=== PATIENT | female | born 1940 | race Caucasian/White ===

== ENCOUNTER 2017-02-24 11:10 | Emergency (ER) | payer OTHER ==
[~2017-02-24] VITALS: Ht 149.9 cm; Wt 79.4 kg
[~2017-02-24 11:10] MED LIST: AMLODIPINE BESY10 M1 PO; ASPIRIN EC325 M2 PO; BUDESONIDE0.25 MG/2 INH/SOL; CALCIUM 600 +1 EAC7 PO; CO Q-10100 MG PO; COLACE100 M1 PO; COQ10 IN OIL 101 SGL PO; DIAZEPAM5 MG PO; DICLOFENAC SODI75 M2 PO; DILAUDID2 M1 PO; DIOVAN80 MG PO; DOXYCYCLINE MO100 MG PO; FISH OIL 1,2001 EAC2 PO; FLOVENT0.11 MG/Ac INH; HYDRODIURIL 2525 MG PO; LIPITOR 40MG40 MG PO; LIPITOR40 M1 PO; MAGNESIUM/ZINC PO; MIRALAX17 G1 PO; NEXIUM20 MG PO; NORVASC 5MG TAB5 MG PO; ONE DAILY MULT1 EAC2 PO; PREDNISONE 20MG20 MG PO; PRILOSEC40 MG PO; PRISTIQ ER50 MG PO; SPIRIVA1 PUF INH; TRAMADOL50 MG PO; VALIUM 10 MG. T10 MG PO; VALIUM10 M1 PO; VENTOLIN1 PUF INH; VIBRAMYCIN 100100 MG PO; [UNRECOGNIZED DRUG - CODE] PO
--- NOTE | 2017-02-24 11:42 | ED GENERAL ADULT ---
History of Present Illness General Chief Complaint: General Adult Stated Complaint: BIBA FROM HOME SOB/WEAKNESS Source: patient Exam Limitations: no limitations Vital Signs & Intake/Output Vital Signs & Intake/Output Vital Signs Date Time Temp Pulse Resp B/P B/P Pulse O2 O2 Flow FiO2 Mean Ox Delivery Rate 02/24 1725 98.5 82 14 162/73 Room Air 02/24 1530 97.0 67 16 163/70 97 Room Air 02/24 1353 99.0 76 19 188/77 02/24 1319 99.0 76 19 188/77 95 Room Air 02/24 1130 98 02/24 1121 99.3 74 20 186/74 98 Room Air Allergies Coded Allergies: NO KNOWN ALLERGIES (03/23/16) Reconcile Medications Alendronate Sodium 70 MG TABLET 1 TAB PO QW BONE (Reported) in the morning, at least 30 minutes before the first food, beverage, or medication of the day Amlodipine Besylate 10 MG TABLET 1 TAB PO DAILY BP (Reported) Atorvastatin Calcium (Lipitor) 40 MG TABLET 1 TAB PO DAILY CHOLESTEROL ( Reported) Calcium Carbonate/Vitamin D3 (Calcium 600 + Vit D 800 Tab) 600 MG-800 TABLET 1 TAB PO DAILY SUPPLEMENT (Reported) Desvenlafaxine Succinate (Pristiq ER) 50 MG TAB.ER.24H 1 TAB PO DAILY DEPRESSION (Reported) Diazepam (Valium) 10 MG TABLET 1 TAB PO BIDP PRN ANXIETY (Reported) Diclofenac Sodium 75 MG TABLET.DR 1 TAB PO BID PAIN CONTROL (Reported) Docusate Sodium (Colace) 100 MG CAPSULE 1 CAP PO BID constipation hold if diarrhea Esomeprazole Magnesium (Nexium) 20 MG CAPSULE.DR 1 CAP PO DAILY GI (Reported) Fluticasone/Vilanterol (Breo Ellipta 100-25 Mcg INH) 100 MCG-25 MCG/DOSE BLST.W.DEV SHORTNESS OF BREATH (Reported) Hydrochlorothiazide 25 MG TABLET 1 TAB PO DAILY WATER RETENTION (Reported) Multivitamin (One Daily Multivitamin) 1 EACH TABLET 1 TAB PO DAILY VITAMIN SUPPORT (Reported) [place]-3S/Dha/Epa/Fish Oil (Fish Oil 1,200 MG Softgel) 360-1,200MG CAPSULE 1 CAP PO DAILY SUPPLEMENT (Reported) Tramadol HCl 50 MG TABLET 1 TAB PO BIDP PRN PAIN (Reported) Ubidecarenone (Co Q-10) 100 MG CAPSULE 1 CAP PO DAILY SUPPLEMENT (Reported) Triage Nurses Notes Reviewed? yes Onset: Abrupt Duration: day(s): (1), constant, getting worse Timing: recent history Injury Environment: home Severity: moderate, severe No Modifying Factors: none HPI: 76-year-old female comes into emergency room with multiple complaints. Patient recently being treated for UTI. She lives at home by herself. Patient reports that waking up this morning she had profound weakness with some shortness of breath. Patient reports that she was barely able to get up out of bed. She reports some chest pressure but she reports that this is been going on for 2 years intermittently and denies any changes in regards to the pressure that she is experiencing. She denies any fever chills vomiting. She's had an associated cough. Currently on an antibiotic for a urinary tract infection. Denies any abdominal pain. Denies any other associated symptoms. (DARYL MERRITT) Past History Medical History Any Pertinent Medical History? 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 BROTHER FHx: ischemic heart disease Hx Contributory? No (DARYL MERRITT) Review of Systems Review of Systems Constitutional: Reports: see HPI. EENTM: Reports: no symptoms. Respiratory: Reports: see HPI. Cardiovascular: Reports: see HPI. GI: Reports: no symptoms. Genitourinary: Reports: no symptoms. Musculoskeletal: Reports: no symptoms. Skin: Reports: no symptoms. Neurological/Psychological: Reports: no symptoms. Hematologic/Endocrine: Reports: no symptoms. Immunologic/Allergic: Reports: no symptoms. All Other Systems: Reviewed and Negative (DARYL MERRITT) Physical Exam Physical Exam General Appearance: well developed/nourished, alert, awake Head: atraumatic Eyes: Bilateral: normal appearance. Ears, Nose, Throat: normal ENT inspection, hearing grossly normal Neck: normal inspection Respiratory: normal breath sounds, no respiratory distress Cardiovascular: regular rate/rhythm Gastrointestinal: soft, non-tender Back: normal inspection Extremities: normal inspection, no edema Neurologic/Psych: awake, alert, oriented x 3 Skin: intact, normal color Core Measures ACS in differential dx? No CVA/TIA Diagnosis: No Severe Sepsis Present: No Septic Shock Present: No (DARYL MERRITT) Progress Differential Diagnoses considered the following diagnoses in my evaluation of the patient: Pneumonia, COPD, asthma, PE, NM, aortic dissection, UTI, sepsis, dehydration, Plan of Care: Orders Procedure Date/time Status TROPONIN LEVEL 02/24 1530 Complete EKG 02/24 1530 Active Telemetry/Wholesale [employer]ker 02/24 1113 Active CULTURE,URINE 02/24 1113 Active URINALYSIS 02/24 1113 Complete TROPONIN LEVEL 02/24 1113 Complete COMPREHENSIVE METABOLIC PANEL 02/24 1113 Complete CBC WITHOUT DIFFERENTIAL 02/24 1113 Complete B-TYPE NATRIURETIC PEP (BNP) 02/24 1113 Complete EKG 02/24 1113 Active Laboratory Tests 02/24/17 1540: Troponin I < 0.01 02/24/17 1127: Anion Gap 13, Estimated GFR > 60, BUN/Creatinine Ratio 15.7, Glucose 136 H, Calcium 9.9, Total Bilirubin 0.8, AST 110 H, ALT 97 H, Alkaline Phosphatase 76 , Troponin I < 0.01, Fvl-B-Psaowynimwt Pept 79.0, Total Protein 7.7, Albumin 5.0 , Globulin 2.7, Albumin/Globulin Ratio 1.9, CBC w Diff NO MAN DIFF REQ, RBC 4.86 , MCV 91.6, MCH 30.2, RDW 14.2, MPV 9.8, Gran % 72.4, Lymphocytes % 18.2 L, Monocytes % 7.5, Eosinophils % 1.3, Basophils % 0.6, Absolute Granulocytes 7.3 H, Absolute Lymphocytes 1.8, Absolute Monocytes 0.8 H, Absolute Eosinophils 0.1 , Absolute Basophils 0.1, PUBS MCHC 32.9 L, Urine Color STRAW, Urine Clarity CLEAR, Urine pH 7.5, Ur Specific [place] 1.010, Urine Protein NEG, Urine Ketones NEG, Urine Nitrite NEG, Urine Bilirubin NEG, Urine Urobilinogen 0.2, Ur Leukocyte Esterase NEG, Ur Microscopic EXAM NOT REQUIRED, Urine Hemoglobin NEG, Urine Glucose NEG Microbiology 02/24 1127 URINE ROUT: Urine Culture - RECD Diagnostic Imaging: Viewed by Me: Radiology Read. Discussed w/RAD: Radiology Read. Radiology Impression: XAM TYPE: RAD - XRY-PORTABLE CHEST XRAY EXAMINATION: XR PORTABLE CHEST CLINICAL INFORMATION: Cough and shortness of breath. Rule out pneumonia. COMPARISON: 03/04/2016 TECHNIQUE: Portable frontal view of the chest was obtained. FINDINGS: Lung volumes are low, with elevation of the right hemidiaphragm. There is diffuse bronchial wall thickening. No dense consolidation. No pleural effusion or pneumothorax. The cardiomediastinal silhouette is unchanged, with a calcified aorta. IMPRESSION: Persistent elevation of the right hemidiaphragm. No dense consolidation. Bronchial wall thickening can be seen with a small airways process such as asthma or atypical/ viral infection. DICTATED BY: RADHA DALLAS MD DATE/TIME DICTATED:02/24/171150 PLACEMENT COORDINATOR:CAITY DATE/TIME TRANSCRIBED:02/24/171150 Initial ED EKG: normal intervals, normal p-waves, normal sinus rhythm, rate (75) , nonspecific ST T wave chg Repeat EKG: unchanged (DARYL MERRITT) Departure Departure Disposition: HOME OR SELF CARE Condition: Stable Clinical Impression Primary Impression: Weakness Secondary Impressions: Dyspnea Referrals: FRANK GILBERT,JAVON Arizmendi (PCP/Family) Additional Instructions: Follow-up with your primary care doctor. Return if any concerns worsening symptoms. Please go over all results of today's visit with your primary care doctor. Contact your primary care doctor to let them know you were here in the emergency room. There may be nonspecific findings which may not be related to your visit today here in the emergency room but may require further evaluation and chronic monitoring by your primary care doctor. If you had a laceration today the chance of foreign body always remains. You should follow-up with your primary care doctor for recheck in 3-5 days for a wound check. If you had an x-ray done there is a chance that a fracture could have been missed on initial read and you should follow-up with your primary care doctor for repeat x-rays if symptoms persist. If your blood pressure was elevated here in the emergency room please have rechecked by her primary care doctor within the next 48 hours by your primary care doctor. If you were prescribed a narcotic here in the emergency room or any type of controlled substances you're not allowed to drive while taking this medication or operate any type of heavy machinery. Narcotics can make you feel lightheaded dizziness nausea and can cause constipation. You may need to vegetable picker a stool softener. Thank you for choosing [facility] emergency room. Please return to the emergency room immediately if you have any other concerns worsening of symptoms. Departure Forms: Customer Survey General Discharge Information Comments 02/24/2017 8:48:41 PM Patient has been in no respiratory distress here. Patient eating. Reevaluated multiple times. Patient able to ambulate with no difficulty. Spoke with Bc and the daughter as well as the son. They agree with taking the patient home. Patient has no chest pain. Clinically looks well. No apparent distress upon discharge. Sitting up and eating a meal before discharge. Case was discussed with Dr. Muro. Patient understands and agrees with plan of care. (DRAYL MERRITT) PA/WRAPPER STRIPPER Co-Sign Statement Statement: ED Attending supervision documentation- [X] I saw and evaluated the patient. I have also reviewed all the pertinent lab results and diagnostic results. I agree with the findings and the plan of care as documented in the PA's/WRAPPER STRIPPER's documentation. [X] I have reviewed the ED Record and agree with the PA's/WRAPPER STRIPPER's documentation. [] Additions or exceptions (if any) to the PAs/WRAPPER STRIPPER's note and plan are summarized below: [] (MIKEY GILBERT,JAVON Navarrete) Critical Care Note Critical Care Note Critical Care Time: non-applicable (DARYL MERRITT)
[2017-02-24] MEDS ORDERED: HYDROCHLOROTHIA25 M1 PO (11:50)
[2017-02-24] MEDS ORDERED: BREO ELLIPTA 11 EACH PO (11:51)
[2017-02-24] MEDS ORDERED: NEXIUM20 M1 PO (11:52)
[2017-02-24] MEDS ORDERED: ALENDRONATE SOD70 M2 PO (11:52)
[2017-02-24] MEDS ORDERED: TRAMADOL HCL50 M1 PO (11:56)
--- NOTE | 2017-02-24 11:57 | RADIOLOGY REPORT ---
EXAMINATION: XR PORTABLE CHEST CLINICAL INFORMATION: Cough and shortness of breath. Rule out pneumonia. COMPARISON: 03/04/2016 TECHNIQUE: Portable frontal view of the chest was obtained. FINDINGS: Lung volumes are low, with elevation of the right hemidiaphragm. There is diffuse bronchial wall thickening. No dense consolidation. No pleural effusion or pneumothorax. The cardiomediastinal silhouette is unchanged, with a calcified aorta. IMPRESSION: Persistent elevation of the right hemidiaphragm. No dense consolidation. Bronchial wall thickening can be seen with a small airways process such as asthma or atypical/viral infection.
[2017-02-24 12:07] LABS: ABSOLUTE BASOPHIL COUNT 0.1 /CUMM (0.0-0.2); ABSOLUTE EOSINOPHIL COUNT 0.1 /CUMM (0.0-0.7); ABSOLUTE GRANULOCYTE CT 7.3 /CUMM (1.4-6.5); ABSOLUTE LYMPH COUNT 1.8 /CUMM (1.2-3.4); ABSOLUTE MONOCYTE COUNT 0.8 /CUMM (0.10-0.60); BASOPHIL % 0.6 % (0.0-2.0); EOSINOPHIL % 1.3 % (0-5); GRANULOCYTE % 72.4 % (42.2-75.2); HEMATOCRIT 44.5 % (37-47); MEAN CORPUSCULAR HGB 30.2 PG (27.0-31.0); MEAN CORPUSCULAR HGB CONC 32.9 G/DL (33.0-37.0); MEAN CORPUSCULAR VOLUME 91.6 FL (81.0-99.0); MEAN PLATELET VOLUME 9.8 FL (7.4-10.4); PLATELET COUNT 267 /CUMM (130-400); RBC DISTRIBUTION WIDTH 14.2 % (11.5-14.5); RED BLOOD CELL CT 4.86 /CUMM (4.20-5.40); WHITE BLOOD CELL COUNT 10.1 /CUMM (4.8-10.8)
[2017-02-24 17:25] VITALS: BP 162/73
== END 2017-02-24 18:21 ==
LOC: ERH 11:10
PROVIDERS: Physician Assistant Medical
DX: R53.1 Weakness (principal); R06.00 Dyspnea, unspecified; I10 Essential (primary) hypertension; R73.03 Prediabetes
CPT/HCPCS: 81003; 87086; 93005; 93010; J3360

== ENCOUNTER 2017-12-19 01:33 | Inpatient (IN) | payer OTHER, MEDICARE ==
[~2017-12-19] VITALS: Ht 149.9 cm; Wt 80.7 kg
[~2017-12-19 01:33] MED LIST changes: +ALENDRONATE SOD70 M2 PO; +BREO ELLIPTA 11 EACH PO; +CELEBREX200 M1 PO; +DIAZEPAM5 M1 PO; +DICLOFENAC POTA50 M1 PO; +ELIQUIS2.5 M1 PO; +HYDROCHLOROTHIA25 M1 PO; +NEXIUM20 M1 PO; +PERCOCET 5-3251 EACH PO; +TRAMADOL HCL50 M1 PO
--- NOTE | 2017-12-19 09:17 | Surgical Discharge Summary ---
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 BROTHER FHx: ischemic heart disease Psychosocial History Who Do You Live With? Patient/Self Services at Home: None What is Your Primary Language? Hong Konger Review of Systems: SEE HPI Hospital Course Course Attending Physician: Marilu GILBERT,Porter Primary Care Physician: Jose Antonio Bosch MD Hospital Course: Patient was admitted to the hospital for an elective right total knee replacement. The procedure was tolerated well and patient was transferred to a general surgical floor. Postop labs revealed LESLIE, likely secondary to dehydration which improved with IVF hydration. Diet was advanced and tolerated and the patient voided spontaneously. The patient was evaluated and treated by physical therapy. At the time of hospital discharge, the vital signs were stable, neurovascular status was intact and pain was controlled with the use of oral pain medications. Allergies: Coded Allergies: No Known Allergies (12/02/17) Disposition Summary Disposition Principal Diagnosis: PRIMARY UNILATERAL OSTEOARTHRITIS Additional Diagnosis: LESLIE, improving Discharge Disposition: SNF Discharge Instructions General Discharge Information Code Status: Full Code Patient's Diet: Regular diet Patient's Activity: WBAT with RW as needed Follow-Up Instructions/Appts: Follow up in 2 weeks or sooner with concerns Repeat Bun and Creatinine blood work in 2-3 days at [facility] Medications at Discharge Discharge Medications: Stop taking the following medications: Tramadol HCl (Tramadol HCl) 50 MG TABLET ORAL THREE TIMES A DAY NEEDED Continue taking these medications: Desvenlafaxine Succinate (Pristiq ER) 50 MG TAB.ER.24H 1 Tablet ORAL DAILY Comments: Last Taken: 12/22/17 Time: 8:30 AM Multivitamin (One Daily Multivitamin) 1 EACH TABLET 1 Tablet ORAL DAILY Comments: NOT GIVEN IN HOSPITAL Amlodipine Besylate (Amlodipine Besylate) 10 MG TABLET 1 Tablet ORAL DAILY Comments: Last Taken: 12/22/17 Time: 8:30 AM Atorvastatin Calcium (Lipitor) 40 MG TABLET 1 Tablet ORAL DAILY Comments: Last Taken: 12/21/17 Time: 5:30 PM Hydrochlorothiazide (Hydrochlorothiazide) 25 MG TABLET 1 Tablet ORAL DAILY Qty = 90 Comments: Last Taken: 12/22/17 Time: 8:30 AM Fluticasone/Vilanterol (Breo Ellipta 100-25 Mcg INH) 100 MCG-25 MCG/DOSE BLST.W.DEV 2 PUFF ORAL Qty = 60 Comments: NOT GIVEN IN HOSPITAL Alendronate Sodium (Alendronate Sodium) 70 MG TABLET 1 Tablet ORAL Once a Week Instructions: in the morning, at least 30 minutes before the first food, beverage, or medication of the day every tuesday Comments: NOT GIVEN IN HOSPITAL Diclofenac Potassium (Diclofenac Potassium) 50 MG TABLET 1 Tablet ORAL TWICE DAILY Comments: NOT GIVEN IN HOSPITAL Diazepam (Diazepam) 5 MG TABLET 2 Tablet ORAL TAKE AT BEDTIME as needed for sleep Comments: NOT GIVEN IN HOSPITAL Start taking the following new medications: Apixaban (Eliquis) 2.5 MG TABLET 1 Tablet ORAL TWICE DAILY Qty = 60 No Refills Docusate Sodium (Colace) 100 MG CAPSULE 1 Capsule ORAL TWICE DAILY Qty = 14 No Refills Oxycodone HCl/Acetaminophen (Percocet 5-325 MG Tablet) 5 MG-325 MG TABLET 1-2 Tablet ORAL EVERY 4-6 HOURS as needed for PAIN Qty = 36 No Refills
--- NOTE | 2017-12-19 09:22 | Patient Discharge Instructions ---
Discharge Instructions General Discharge Information You were seen/treated for: RIGHT KNEE PAIN You had these procedures: RIGHT TOTAL KNEE REPLACEMENT Watch for these problems: Increasing pain despite the use of pain medication Increasing redness, warmth or swelling Drainage of any type from incision Inability to bear weight on operative leg Persistent nausea and vomiting Fever greater than 101.5 degrees Other wound care: Please keep wound clean and dry. No ointments or lotions of any type on or near incision at any time. No exceptions. Your dressing will be changed by your nurse on the second day after your surgery. Daily dry dressing changes are recommended each day thereafter. Do not soak your wound in a bath at any time until otherwise indicated by your surgeon. You may shower, please dry wound immediately after shower with a clean towel. Special Instructions: Constipation: Pain medication can cause constipation. We recommend that you take Colace and miralax each day. You may discontinue this medication if you develop loose stool or diarrhea. If you wish to continue this medication, it is available over the counter. If you are unable to move your bowels after several days, if you are unable to pass gas and are developing bloating, nausea, or vomiting as a result, please contact your doctor. You will be on a medication to thin your blood. Please take as directed to prevent blood clots in your legs. It will be for 6 weeks. Diet Continue normal diet: Yes Activity Full Activity/No Limits: No Activity Self Limited: Yes Activity Limited to: Weight bear as tolerated Additional ACTIVITY Info: USE ROLLING WALKER NEEDED Acute Coronary Syndrome Inclusion Criteria At DC or during hospital stay patient has or had the following: ACS DIAGNOSIS No Discharge Core Measures Meds if any: Prescribed or Continued at Discharge Meds if any: NOT Prescribed or Continued at Discharge Congestive Heart Failure Inclusion Criteria At DC or during hospital stay patient has or had the following: CHF DIAGNOSIS No Discharge Core Measures Meds if any: Prescribed or Continued at Discharge Meds if any: NOT Prescribed or Continued at Discharge Cerebrovascular accident Inclusion Criteria At DC or during hospital stay patient has or had the following: CVA/TIA Diagnosis No Discharge Core Measures Meds if any: Prescribed or Continued at Discharge Meds if any: NOT Prescribed or Continued at Discharge Venous thromboembolism Inclusion Criteria VTE Diagnosis No VTE Type NONE VTE Confirmed by (Test) NONE Discharge Core Measures - Per Current guidelines, there needs to be overlap - treatment for the first 5 days of Warfarin therapy. - If discharged on Warfarin prior to 5 days of - overlap therapy, the patient will need to be - assessed for post discharge needs including - *Post discharge parental anticoagulation - *Warfarin and/or parental anticoagulation education - *Follow up date to check INR post discharge At least 5 days overlap therapy as Inpatient No Meds if any: Prescribed or Continued at Discharge Note: Overlap Therapy is Warfarin and Anticoagulant Meds if any: NOT Prescribed or Continued at Discharge
--- NOTE | 2017-12-19 09:34 | Operative Report ---
Operative/Inv Procedure Report Surgery Date: 12/19/17 Name of Procedure: Right total knee arthroplasty Pre-Operative Diagnosis: Primary right knee osteoarthritis Post-Operative Diagnosis: Same Estimated Blood Loss: scant Surgeon/Double End Chucking Machine Operator: Marilu GILBERT,Chepe Buenrostro Anesthesia: block Implants: Striker triathlon total knee system-size 3 femur, size 3 tibia, 9 mm cruciate retaining polyethylene, 29 patella Drains: None Specimens: Femoral, tibial, patellar bone Microbiology: Urine Tourniquet: 46 minutes Complications: None Condition: Stable Operative Indication: Patient is a 77-year-old woman with a history of gradually worsening knee symptoms. She was diagnosed with bilateral knee osteoarthritis. She underwent conservative management including medications and activity modifications injections but had increasing symptoms that interfere with normal activities of daily living. She underwent left total knee arthroplasty during this past year. Due to ongoing right knee symptoms she wished to proceed with total knee arthroplasty on the right. Risks benefits and expectations of the surgical treatment were discussed which included but were not limited to persistent knee pain, need for subsequent surgery, infection, DVT, injury to blood vessel or nerve, anesthesia risks. Operative/Procedure Note Note: The patient was brought to the operating room and transferred to the operating table. Once under appropriate anesthesia the right lower extremity was prepped and draped in standard fashion. Preoperative IV antibiotics were given prophylactically. The leg was elevated exsanguinated and tourniquet was inflated to 300 mm of pressure. A standard anterior incision was made for anticipated medial parapatellar approach to the knee. The incision was taken down sharply to the underlying retinaculum. Medial retinacular approach with a minimal extension into the quadriceps tendon was used to enter the knee. Degenerative osteophytes the distal femur proximal tibia and patella were excised. Degenerative changes were noted in all 3 compartments. Severe end- stage degenerative changes lateral compartment. Remnants of the medial lateral meniscal tissues were excised. Remnants of the PCL was excised. Drill was used to enter the intramedullary canal of the femur for the intramedullary guide for the distal femoral cut. Soft tissues were protected throughout the case with multiple knee retractors during all the preparatory cuts. The distal femur was cut at a 5 valgus angle since patient had a preoperative valgus knee. The cut was made. The femur was incised to a size 3. Size 3 cutting jig was pinned in place for finishing off the distal femur. I was satisfied with the preparation of the femur. I then turned my attention to the tibia. The external tibial alignment guide was used to pin the cutting block in a neutral position from medial to lateral and reproducing patient's posterior slope based on preoperative templating and intraoperative intraoperative measurements. Again soft tissues were protected medially laterally and posteriorly now the PCL was recessed for balancing purposes. Remnants of the posterior horns of the medial lateral meniscal tissues were excised as well. The cut was made. I was satisfied with that. I then sized the tibia to a size 3. Size 3 tibial component and polyethylene trial as well as the trial femur was impacted in place and the knee was taken out to full extension. It was slightly tight in flexion and extension. Therefore took off another 2 mm of the distal tibia in standard fashion. I reapplied the trial components I was satisfied with the balancing. I then measured the patella and remove the appropriate thickness and restored it with a 29 mm patella. The 3 lug holes were drilled. Marking my rotation of the tibia and drilled my 2 lug holes completed the preparation of the femur and patella. I finished preparation of the tibia with the appropriate tibial punch. Copious irrigation the knee followed as cement was being mixed on the back table. Once cement was ready was applied to the dry clean bony surfaces of the proximal tibia. The size 3 tibial component was impacted in place and excess cement was removed with a curette. Cement was applied to the dry clean bony surface of the distal femur. The size 3 femoral component for cruciate retaining knee was impacted in place and excess cement was removed with curettes. The trial polyethylene was inserted and the knee was taken out to full extension. Cement was applied to the dry clean bony surfaces of the patella. The size 29 patella was impacted in place and excess cement was removed with a knife. During the cement hardening process I did appear articular pericapsular injection of a cocktail which included ropivacaine with epinephrine and Toradol for postoperative pain and inflammation management. Once the cement hardened I took the knee through range of motion. A major was no any excess cement and removal of this followed. I was satisfied with the stability with a 9 mm insert. Full extension. Good mid flexion stability. Full flexion to gravity. The trial polyethylene was removed. Copious irrigation the tibial tray followed. I then impacted the definitive size 9 mm cruciate retaining polyethylene in place. The locking mechanism was confirmed. I took the knee through range of motion. I was satisfied with the stability of the construct. Copious irrigation of the knee followed and copious irrigation of the knee followed after every level of closure. The tourniquet was deflated at 46 minutes. Hemostasis was obtained. The medial retinacular and minimal extension into the quadriceps tendon were repaired. Subcutaneous tissues closed in 2 layers with 2-0 Vicryl due to the depth of the wound. Skin was closed a running 3-0 Vicryl suture with the knee in flexion. Appropriate dressings were applied and patient was awakened and taken the recovery room in good condition. No intraoperative complications. Blood loss was minimal Discharge Disposition: PACU
--- NOTE | 2017-12-19 11:03 | Admission Core Measures ---
Acute Coronary Syndrome (CM) ACS Core Measures Acute Coronary Syndrome Diagnosis No Congestive Heart Failure (NEW) CHF Core Measures Congestive Heart Failure Diagnosis No Cerebrovascular Accident (NEW) CVA Core Measures CVA/TIA Diagnosis No Venous Thromboembolism VTE Core Kinga (View Protocol) VTE Risk Factors Surgery No Mechanical VTE Prophylaxis d/t N/A MechProphylax Ordered No VTE Pharm Prophylaxis d/t NA PharmProphylax ordered Problem List As ranked by this Provider includes Assessment & Plan 1. Unilateral primary osteoarthritis, right knee HOME MEDS Home Med List Alendronate Sodium 70 MG TABLET 1 TAB PO QW osteoporosis (Reported) Amlodipine Besylate 10 MG TABLET 1 TAB PO DAILY BP (Reported) Atorvastatin Calcium (Lipitor) 40 MG TABLET 1 TAB PO DAILY CHOLESTEROL ( Reported) Desvenlafaxine Succinate (Pristiq ER) 50 MG TAB.ER.24H 1 TAB PO DAILY DEPRESSION (Reported) Diazepam 5 MG TABLET 2 TAB PO QHS PRN sleep (Reported) Diclofenac Potassium 50 MG TABLET 1 TAB PO BID pain (Reported) Hydrochlorothiazide 25 MG TABLET 1 TAB PO DAILY WATER RETENTION (Reported) Multivitamin (One Daily Multivitamin) 1 EACH TABLET 1 TAB PO DAILY VITAMIN SUPPORT (Reported) Tramadol HCl 50 MG TABLET 1 TAB PO TIDPRN pain (Reported)
[2017-12-19 11:30] VITALS: BP 132/56
--- NOTE | 2017-12-19 13:05 | PN- Orthopedic ---
Subjective Subjective: Postop check Sleepy, no OOB yet, no po intake yet. Denies chest pain/shortness of breath. No nausea/vomiting. Pain well controlled. Denies paresthesias. Objective Vital Signs and I&Os Vital Signs Date Time Temp Pulse Resp B/P B/P Pulse O2 O2 Flow FiO2 Mean Ox Delivery Rate 12/19 1130 97.8 82 18 132/56 93 Nasal 2.0L Cannula Intake & Output 12/19 1600 12/19 0000 12/18 1600 12/18 0000 Intake Total Output Total Balance Patient 178 lb Weight Physical Exam: GEN: NAD CARD: S1S2 PULM: No audible wheeze ABD: soft, nt EXT: RLE dressed in [place] wrap-cdi. calves soft nt bilaterally, ALPS on. Palpable DP bilaterally. Gross dorsi/plantar flexion intact. Gross sensation intact. On-Q pump in place. Assessment/Plan Assessment/Plan A: 77F POD #0 SP right TKR, sleepy but arousable, awaiting out of bed, PT, oral intake, currently stable. P: - DVT ppx: eliquis 2.5 bid, alps - Regular diet as tolerated - prn pain meds - OOB, ambulate, WBAT, PT - abx: 23 hours postop prophylaxis - am labs - Titrate O2 off -DC Jl in a.m. - will sang attending Core Measures Venous Thromboembolism VTE Risk Factors Surgery No Mechanical VTE Prophylaxis d/t N/A MechProphylax Ordered No VTE Pharm Prophylaxis d/t NA PharmProphylax ordered
[2017-12-19 15:46] VITALS: BP 122/56
[2017-12-19 20:30] VITALS: BP 112/56
[2017-12-19 23:29] VITALS: BP 120/61
[2017-12-20 03:50] VITALS: BP 126/58
[2017-12-20 06:50] VITALS: BP 128/59
--- NOTE | 2017-12-20 07:25 | PN- Orthopedic ---
See Addendum Subjective Subjective: POD #1 s/p R TKR. Resting comfortably in bed. No complaints of pain to right leg. Tolerating a regular diet. Voiding via lewis catheter. Yet to ambulate. Objective Vital Signs and I&Os Vital Signs Date Time Temp Pulse Resp B/P B/P Pulse O2 O2 Flow FiO2 Mean Ox Delivery Rate 12/20 0650 98.3 73 18 128/59 96 CPAP 12/20 0352 95 Nasal 2.0L Cannula 12/20 0350 98.1 72 20 126/58 98 Nasal 2.0L Cannula 12/20 0000 Nasal 2.0L Cannula 12/19 2329 98.5 79 18 120/61 96 Nasal 2.0L Cannula 12/19 2030 97.6 81 18 112/56 95 Nasal 2.0L Cannula 12/19 1600 94 Nasal 2.0L Cannula 12/19 1546 97.7 75 18 122/56 94 Nasal 2.0L Cannula 12/19 1130 97.8 82 18 132/56 93 Nasal 2.0L Cannula Intake & Output 12/20 1600 12/20 0800 12/20 0000 12/19 1600 12/20 0700 12/19 0000 Intake Total 600 1600 900 Output Total 500 300 850 Balance 100 1300 50 Intake, IV 600 800 300 Intake, Oral 800 600 Output, Urine 500 300 850 Patient 178 lb Weight Physical Exam: Gen: AAOx3 in NAD Cor: S1+S2+ Lungs: CTA jose elias Abd: soft, NT, ND, +BS x4 Ext: right lower extremity dressing c/D/I. Thigh compartment soft. On q in place. Palpable DP pulse. Sensation intact jose elias. Dorsiflexion/plantar flexion 5/5 to right leg. Current Medications: Current Medications Sig/Urszula Start time Last Medication Dose Route Stop Time Status Admin Acetaminophen 650 MG ONCE 12/19 0000 DC PO 12/19 2358 Amlodipine Besylate 10 MG DAILY 12/20 1000 AC PO Apixaban 2.5 MG BID 12/20 1000 AC PO Atorvastatin Calcium 40 MG 1700 12/19 1700 AC 12/19 PO 1830 Budesonide/ 2 PUF BID 12/19 2200 AC 12/19 Formoterol Fumarate INH 2116 Celecoxib 400 MG DAILY 12/20 1000 AC PO Celecoxib 400 MG ONCE 12/19 0000 DC PO 12/19 235 Desvenlafaxine 50 MG DAILY 12/19 1900 AC 12/19 Succinate PO 1830 Dexamethasone 10 MG ONCE 12/19 0000 DC IV 12/19 2359 Dextrose/Lactated 1,000 ML Q10H 12/19 1100 DC 12/19 Ringer's IV 2116 Docusate Sodium 100 MG DAILY 12/20 1000 AC PO Docusate Sodium 100 MG DAILY NEEDED PRN 12/19 1145 DC PO Fluticasone 1 PUF DAILY 12/20 1000 CAN Propionate INH Gabapentin 300 MG ONCE 12/19 0000 DC PO 12/19 2359 Hydrochlorothiazide 25 MG DAILY 12/19 1000 AC PO Morphine Sulfate 2 MG Q2P PRN 12/19 1300 AC IV Morphine Sulfate 2 MG Q3P PRN 12/19 1145 DC IV Morphine Sulfate 4 MG Q3P PRN 12/19 1145 DC IV Ondansetron HCl 4 MG Q6P PRN 12/19 1145 AC IV Oxycodone HCl 10 MG ONCE 12/19 0000 DC PO 12/19 2359 Oxycodone/ 1 TAB Q4P PRN 12/19 1145 AC Acetaminophen PO Oxycodone/ 2 TAB Q4P PRN 12/19 1145 AC Acetaminophen PO Patient Medication 1 ED ONE ONE 12/19 1500 DC Teaching ED 12/19 1501 Polyethylene Glycol 17 GM DAILY 12/20 1000 AC PO Polyethylene Glycol 17 GM DAILY NEEDED PRN 12/19 1145 DC PO Ropivacaine 500 ML ONCE ONE 12/19 0830 DC ON-Q Ball 1 BAG INJ 12/21 0209 Scopolamine HBr 1 PAT ONCE 12/19 0000 DC TOP 12/19 2359 Senna/Docusate Sodium 2 TAB DAILY 12/20 1000 AC PO Senna/Docusate Sodium 2 TAB AT BEDTIME NEED.. 12/19 1145 DC PO Vancomycin HCl 1,250 MG ONCE ONE 12/19 1900 DC 12/19 Sodium Chloride 250 ML IV 12/19 195 183 Vancomycin HCl 1,250 MG ONCE 12/19 0000 DC Sodium Chloride 250 ML IV 12/19 235 Results Last 48 Hours of Labs: Laboratory Tests 12/20 07 Chemistry Sodium Pending Potassium Pending Chloride Pending Carbon Dioxide Pending Anion Gap Pending BUN Pending Creatinine Pending BUN/Creatinine Ratio Pending Hematology CBC w Diff Pending WBC Pending RBC Pending Hgb Pending Hct Pending MCV Pending MCH Pending MCHC Pending RDW Pending Plt Count Pending MPV Pending Gran % Pending Lymphocytes % Pending Monocytes % Pending Eosinophils % Pending Basophils % Pending Absolute Granulocytes Pending Absolute Lymphocytes Pending Absolute Monocytes Pending Absolute Eosinophils Pending Absolute Basophils Pending Assessment/Plan Assessment/Plan A: POD #1 s/p R TKR; AVSS Plan: Eliquis x 6 weeks post op. PT eval today. D/C lewis. Will be due to void. D/C IVF. Dressing change tomorrow. Onq out tomorrow am. Core Measures Venous Thromboembolism VTE Risk Factors Surgery No Mechanical VTE Prophylaxis d/t N/A MechProphylax Ordered No VTE Pharm Prophylaxis d/t NA PharmProphylax ordered
[2017-12-20 08:01] LABS: ABSOLUTE BASOPHIL COUNT 0 /CUMM (0.0-0.2); ABSOLUTE EOSINOPHIL COUNT 0 /CUMM (0.0-0.7); ABSOLUTE GRANULOCYTE CT 18.4 /CUMM (1.4-6.5); ABSOLUTE LYMPH COUNT 1.1 /CUMM (1.2-3.4); ABSOLUTE MONOCYTE COUNT 1.2 /CUMM (0.10-0.60); BASOPHIL % 0.1 % (0.0-2.0); EOSINOPHIL % 0 % (0-5); HEMATOCRIT 28.7 % (37-47); MEAN CORPUSCULAR HGB CONC 33.6 G/DL (33.0-37.0); MEAN CORPUSCULAR VOLUME 89.3 FL (81.0-99.0); PLATELET COUNT 208 /CUMM (130-400); RBC DISTRIBUTION WIDTH 15.5 % (11.5-14.5); RED BLOOD CELL CT 3.21 /CUMM (4.20-5.40); WHITE BLOOD CELL COUNT 20.7 /CUMM (4.8-10.8)
[2017-12-20 08:44] LABS: GRANULOCYTE % 88.8 % (42.2-75.2)
[2017-12-20 11:15] VITALS: BP 130/60
[2017-12-20 14:23] VITALS: BP 130/70
[2017-12-20 23:10] VITALS: BP 135/63
[2017-12-21 02:00] VITALS: BP 134/60
[2017-12-21 06:54] VITALS: BP 117/62
--- NOTE | 2017-12-21 08:05 | PN- Orthopedic ---
See Addendum Subjective Subjective: No acute overnight events reported. Patient acknowledges achiness when ambulating but otherwise feels pain is properly controlled. Denies chest pain, shortness of breath and difficulty breathing. Denies nausea and vomitting. Was on gentle iv hydration overnight, voiding well. Objective Vital Signs and I&Os Vital Signs Date Time Temp Pulse Resp B/P B/P Pulse O2 O2 Flow FiO2 Mean Ox Delivery Rate 12/21 0654 98.8 64 18 117/62 94 Room Air 12/21 0200 97.9 61 20 134/60 94 CPAP 12/20 2310 97.9 70 20 135/63 96 Room Air 12/20 1600 96 Room Air 12/20 1423 97.4 67 20 130/70 96 Room Air 12/20 1115 97.8 68 20 130/60 96 Room Air 12/20 0852 73 128/59 12/20 0800 96 BIPAP 2.0L Intake & Output 12/21 0800 12/21 0000 12/20 1600 12/20 0800 12/20 0000 12/19 1600 Intake Total 720 540 915 494 0753 900 Output Total 650 500 300 850 Balance 720 540 271 523 3324 50 Intake, IV 600 300 310 600 800 300 Intake, Oral 120 240 600 800 600 Output, Urine 650 500 300 850 Patient 178 lb Weight Physical Exam: General: Alert and oriented x3, no acute distress, reported transient confusion , 1 episode on exam Cardiac: RRR, s1s2 Pulm: CTA bilaterally Abdomen: Non-tender, non-distended Extremities: Moves all extremities. Distal senation grossly intact. Skin warm and well perfused. Bilateral calves soft and non-tender. Surgical site: Right knee, dressing dry and intact. Changed. Skin edges well approximated. No drainage. No active bleeding. Steri strips in place, intact. No surrounding erythema. Clean, dry dressing re-applied. Assessment/Plan Assessment/Plan This is a 77 year old female, POD 2, s/p R TKR -Continue oral pain regimen -OOB, wbat -Follow up creatinine, if elevated will consider changing eliquis and dc celebrex -Diet as tolerated -Daily dry dressing changes -Continue bowel regimen -Anticipate dc to str tomorrow Discussed with Dr. Michel Core Measures Venous Thromboembolism VTE Risk Factors Surgery No Mechanical VTE Prophylaxis d/t N/A MechProphylax Ordered No VTE Pharm Prophylaxis d/t NA PharmProphylax ordered
[2017-12-21 08:28] LABS: ABSOLUTE BASOPHIL COUNT 0 /CUMM (0.0-0.2); ABSOLUTE EOSINOPHIL COUNT 0.1 /CUMM (0.0-0.7); ABSOLUTE GRANULOCYTE CT 8.7 /CUMM (1.4-6.5); ABSOLUTE LYMPH COUNT 2.9 /CUMM (1.2-3.4); ABSOLUTE MONOCYTE COUNT 0.9 /CUMM (0.10-0.60); BASOPHIL % 0.4 % (0.0-2.0); EOSINOPHIL % 0.8 % (0-5); GRANULOCYTE % 68.8 % (42.2-75.2); HEMATOCRIT 26.3 % (37-47); MEAN CORPUSCULAR HGB CONC 33.5 G/DL (33.0-37.0); MEAN CORPUSCULAR VOLUME 89.3 FL (81.0-99.0); MEAN PLATELET VOLUME 10.7 FL (7.4-10.4); PLATELET COUNT 204 /CUMM (130-400); RBC DISTRIBUTION WIDTH 16.1 % (11.5-14.5); RED BLOOD CELL CT 2.94 /CUMM (4.20-5.40); WHITE BLOOD CELL COUNT 12.7 /CUMM (4.8-10.8)
[2017-12-21 11:03] VITALS: BP 160/63
[2017-12-21 14:20] VITALS: BP 142/60
--- NOTE | 2017-12-21 15:08 | RADIOLOGY REPORT ---
EXAMINATION: XR KNEE, RIGHT CLINICAL INFORMATION: Status post right total knee arthroplasty. COMPARISON: Left knee films dated 11/11/2015. TECHNIQUE: Two views of the right knee. FINDINGS: The patient is status post total right knee arthroplasty with the prosthetic components normally situated within the point lay ira bone. Alignment is anatomic. No hardware failure or point lay ira bone fracture is seen. Moderate size suprapatellar knee joint effusion and prominent knee joint as well as subcutaneous emphysema is seen, consistent with postsurgical changes. IMPRESSION: Expected postsurgical changes are seen status post right total knee arthroplasty. Alignment is anatomic. No hardware failure is seen.
[2017-12-21 19:00] VITALS: BP 142/60
[2017-12-21 23:00] VITALS: BP 138/60
[2017-12-22 06:27] VITALS: BP 118/58; BP 148/64
[2017-12-22 09:18] VITALS: BP 136/68
--- NOTE | 2017-12-22 09:35 | PN- Orthopedic ---
Subjective Subjective: Patient reports pain is well controlled. Denies any chest pain, shortness of breath or difficulty breathing. She states she is tired from working with PT. She reports having a BM. She is eager to go to STR today Objective Vital Signs and I&Os Vital Signs Date Time Temp Pulse Resp B/P B/P Pulse O2 O2 Flow FiO2 Mean Ox Delivery Rate 12/22 0818 97.6 70 18 136/68 12/22 0838 70 136/68 12/22 0627 97.6 70 18 148/64 92 12/22 0000 CPAP 12/21 2300 96.9 69 20 138/60 94 CPAP 12/21 1900 98.1 69 20 142/60 94 Room Air 12/21 1420 97.5 80 20 142/60 95 Room Air 12/21 1103 97.8 66 20 160/63 95 Room Air 12/21 1102 Room Air 12/21 1032 68 118/64 Intake & Output 12/22 1600 12/22 0800 12/22 0000 12/21 1600 12/21 0800 12/21 0000 Intake Total 194 007 9775 720 540 Output Total 800 600 Balance 480 -70 800 720 540 Intake, IV 0 10 600 600 300 Intake, Oral 480 720 800 120 240 Number 0 3 Bowel Movements Output, Urine 800 600 Physical Exam: Gen - resting comfortably in a chair in nad Cardiac - S1S2 noted Lungs - CTAB Abd - soft, NT/ND, bowel sounds present Ext - R knee dressing c/D/I, redressed with gauze, compartment soft, nvi, alps in place, no edema or calf tendernes Current Medications: Current Medications Sig/Urszula Start time Last Medication Dose Route Stop Time Status Admin Amlodipine Besylate 10 MG DAILY 12/20 1000 AC 12/22 PO 0838 Apixaban 2.5 MG BID 12/20 1000 AC 12/22 PO 0838 Atorvastatin Calcium 40 MG 1700 12/19 1700 AC 12/21 PO 1724 Bisacodyl 10 MG ONCE ONE 12/22 0600 DC WI 12/22 0601 Budesonide/ 2 PUF BID 12/19 2200 AC 12/22 Formoterol Fumarate INH 0839 Celecoxib 400 MG DAILY 12/20 1000 AC 12/22 PO 0839 Desvenlafaxine 50 MG DAILY 12/19 1900 AC 12/22 Succinate PO 0839 Dextrose/Lactated 1,000 ML Q10H 12/20 1100 DC 12/21 Ringer's IV 1344 Docusate Sodium 100 MG DAILY 12/20 1000 AC 12/21 PO 1032 Hydrochlorothiazide 25 MG DAILY 12/19 1000 AC 12/22 PO 0838 Morphine Sulfate 2 MG Q2P PRN 12/19 1300 AC IV Ondansetron HCl 4 MG Q6P PRN 12/19 1145 AC IV Oxycodone/ 1 TAB Q4P PRN 12/19 1145 AC 12/22 Acetaminophen PO 0504 Oxycodone/ 2 TAB Q4P PRN 12/19 1145 AC 12/22 Acetaminophen PO 0906 Polyethylene Glycol 17 GM DAILY 12/20 1000 AC 12/21 PO 1032 Senna/Docusate Sodium 2 TAB DAILY 12/20 1000 AC 12/21 PO 1032 Assessment/Plan Assessment/Plan 77 F POD 3, s/p R TKR OOB, WBAT Reg diet Pain regimen prn Cont eliquis bid Bowel regimen on board Cont dry dressing changes daily Encourage IS Anticipate d/c to STR today Reasses Bun/Cr in 2-3 days at STR Will d/w Dr. Michel Core Measures Venous Thromboembolism VTE Risk Factors Surgery No Mechanical VTE Prophylaxis d/t N/A MechProphylax Ordered No VTE Pharm Prophylaxis d/t NA PharmProphylax ordered
[2017-12-22] MEDS ORDERED: COLACE100 M1 PO (10:48)
[2017-12-22] MEDS ORDERED: ELIQUIS2.5 M1 PO (10:48)
[2017-12-22] MEDS ORDERED: PERCOCET 5-3251 EACH PO (10:48)
[2017-12-22 10:58] VITALS: BP 130/54
== END 2017-12-22 12:25 | DRG 470 ==
LOC: SDA 01:33 → ENRESERV 10:29 → ENTRNSPT 10:47 → EDTRNSPTSTS 11:08 → EDTRNSPT 11:08 → 2NB 11:16 → CMPTRNSPT 11:29 → 2NB 12-22 12:25
PROVIDERS: Nurse Practitioner; Physician Assistant Surgical
PROC: 0SRC0J9 Replacement of Right Knee Joint with Synthetic Substitute, Cemented, Open Approach (ICD-10-PCS; principal; 2017-12-19)
PROC: 3E0T3BZ Introduction of Anesthetic Agent into Peripheral Nerves and Plexi, Percutaneous Approach (ICD-10-PCS; 2017-12-19)
DX: M17.11 Unilateral primary osteoarthritis, right knee (principal); I65.23 Occlusion and stenosis of bilateral carotid arteries; E78.5 Hyperlipidemia, unspecified; I10 Essential (primary) hypertension; F32.9 Major depressive disorder, single episode, unspecified; G47.33 Obstructive sleep apnea (adult) (pediatric); K21.9 Gastro-esophageal reflux disease without esophagitis; Z96.641 Presence of right artificial hip joint; Z90.49 Acquired absence of other specified parts of digestive tract; Z96.652 Presence of left artificial knee joint
CPT/HCPCS: 2NBSP; 36415; 73560-RT; 82436; 87086; 88305; 97110-GO; 97116-GO; 97161-GP; 97530-GO; C1713; J0171; J1100; J1885; J2405; J2795; J3370; J3490; J7040